=== PATIENT | female | born 1955 | race Caucasian/White ===

== ENCOUNTER 2016-10-10 21:06 | Emergency (ER) | payer OTHER, BC ==
--- NOTE | 2016-10-10 21:34 | ER Document Report ---
ED Medical Screen (RME) - General Stated Complaint: STERNUM PAIN Notes: patient is a 61 year old female who presents with complaint of rib pain. She walters holding a sheet meade and walked into a wall, a corner of the meade caught her in her chest. Admits to pain with deep breath. reproducible to palpation I have greeted and performed a rapid initial assessment of this patient. A comprehensive ED assessment and evaluation of the patient, analysis of test results and completion of the medical decision making process will be conducted by additional ED providers. Physical Exam - Vital signs Vitals: Temp Pulse Resp BP Pulse Ox 98.3 F 72 16 144/80 H 97 10/10/16 21:31 10/10/16 21:31 10/10/16 21:31 10/10/16 21:31 10/10/16 21:31 Course - Vital Signs Vital signs: Temp Pulse Resp BP Pulse Ox 98.3 F 72 16 144/80 H 97 10/10/16 21:31 10/10/16 21:31 10/10/16 21:31 10/10/16 21:31 10/10/16 21:31
[2016-10-11 01:01] LABS: ALANINE AMINOTRANSFERASE 20 U/L (9-52); ALBUMIN 4.3 g/dL (3.5-5.0); ALKALINE PHOSPHATASE 75 U/L (38-126); ANION GAP 9 (5-19); ASPARTATE AMINO TRANSFERASE 17 U/L (14-36); BILIRUBIN,TOTAL 0.5 mg/dL (0.2-1.3); BLOOD UREA NITROGEN 15 mg/dL (7-20); CALCIUM 10.1 mg/dL (8.4-10.2); CARBON DIOXIDE 28 mmol/L (22-30); CHLORIDE 105 mmol/L (98-107); CREATININE RESULT 0.69 mg/dL (0.52-1.25); GLUCOSE 100 mg/dL (75-110); POTASSIUM 3.8 mmol/L (3.6-5.0); SODIUM 142.3 mmol/L (137-145); TOTAL PROTEIN 6.5 g/dL (6.3-8.2)
--- NOTE | 2016-10-11 01:34 | ER Document Report ---
ED General - General Chief Complaint: Rib Pain Stated Complaint: STERNUM PAIN Notes: Patient is a 61-year-old female without past medical history who presents with progressively worsening epigastric and central abdominal tenderness after she struck her mid abdomen with a metal sheet tray while at work yesterday. States that the pain is gotten progressively worse that since that time and is described as a dull, constant, throbbing pain. Nothing improves or worsens the pain. She has no history of similar symptoms in the past. She has not seen her primary care doctor regarding today's concerns. She denies any associated vomiting, melena, hematochezia, diarrhea, or chest pain. No shortness of breath. TRAVEL OUTSIDE OF THE [place] IN LAST 30 DAYS: No - Related Data Allergies/Adverse Reactions: acetaminophen [From Darvocet-N] Allergy (Verified 10/10/16 21:35) codeine Allergy (Verified 10/10/16 21:35) propoxyphene [From Darvocet-N] Allergy (Verified 10/10/16 21:35) scopolamine Allergy (Verified 10/10/16 21:35) Past Medical History - General Information source: Patient - Social History Smoking Status: Current Every Day Smoker Chew tobacco use (# tins/day): No Frequency of alcohol use: Occasional Drug Abuse: None Family History: Reviewed & Not Pertinent Patient has suicidal ideation: No Patient has homicidal ideation: No Renal/ Medical History: Denies: Hx Peritoneal Dialysis Review of Systems - Review of Systems Notes: Constitutional: Negative for fever. HENT: Negative for sore throat. Eyes: Negative for visual changes. Cardiovascular: Negative for chest pain. Respiratory: Negative for shortness of breath. Gastrointestinal: Positive for abdominal pain, negative for vomiting or diarrhea. Genitourinary: Negative for dysuria. Musculoskeletal: Negative for back pain. Skin: Negative for rash. Neurological: Negative for headaches, weakness or numbness. 10 point ROS negative except as marked above and in HPI. Physical Exam - Vital signs Vitals: Temp Pulse Resp BP Pulse Ox 98.3 F 72 16 144/80 H 97 10/10/16 21:31 10/10/16 21:31 10/10/16 21:31 10/10/16 21:31 10/10/16 21:31 Interpretation: Hypertensive Notes: PHYSICAL EXAMINATION: GENERAL: Well-appearing, well-nourished and in no acute distress. HEAD: Atraumatic, normocephalic. EYES: Pupils equal round and reactive to light, extraocular movements intact, sclera anicteric, conjunctiva are normal. ENT: nares patent, oropharynx clear without exudates. Moist mucous membranes. NECK: Normal range of motion, supple without lymphadenopathy LUNGS: Breath sounds clear to auscultation bilaterally and equal. No wheezes rales or rhonchi. HEART: Regular rate and rhythm without murmurs ABDOMEN: Soft, epigastric and central abdominal tenderness on palpation, normoactive bowel sounds. No guarding, no rebound. No masses appreciated. EXTREMITIES: Normal range of motion, no pitting or edema. No cyanosis. NEUROLOGICAL: No focal neurological deficits. Moves all extremities spontaneously and on command. PSYCH: Normal mood, normal affect. SKIN: Warm, Dry, normal turgor, no rashes or lesions noted. Course - Re-evaluation Re-evalutation: 10/11/16 01:30 Patient presents with epigastric and central abdominal pain after sustaining blunt trauma to the abdomen. Primary concern would be a duodenal hematoma especially given patient's pain has progressively worsened. Alternatively, she could have abdominal wall bruising with inflammatory changes but there is not any significant bruising to the abdominal wall at time of my exam. She is otherwise well in appearance and for unclear reasons a chest x-ray was ordered in triage the patient does not have any actual pain to her ribs or sternum. Will proceed with LFTs, CT and plan for discharge if normal. 10/11/16 02:01 CT the abdomen and pelvis unremarkable. Patient with less abdominal pain at this time. Vitals remain within normal limits.At this time will discharge with return precautions and follow-up recommendations. Verbal discharge instructions given a the bedside and opportunity for questions given. Medication warnings reviewed. Patient is in agreement with this plan and has verbalized understanding of return precautions and the need for primary care follow-up in the next 24-72 hours. - Vital Signs Vital signs: Temp Pulse Resp BP Pulse Ox 98.3 F 73 16 144/80 H 97 10/10/16 21:32 10/10/16 21:32 10/10/16 21:32 10/10/16 21:32 10/10/16 21:32 - Laboratory Result Diagrams: 10/11/16 00:39 - Diagnostic Test Radiology reviewed: Reports reviewed Discharge - Discharge Clinical Impression: Abdominal trauma Qualifiers: Encounter type: initial encounter Qualified Code(s): S39.91XA - Unspecified injury of abdomen, initial encounter Condition: Good Disposition: HOME, SELF-CARE Additional Instructions: You have been seen in the Emergency Department (ED) for abdominal pain. Your CT scan today as well as her labs were normal and your pain is likely due to the blunt trauma to your abdomen. This pain should resolve in the next 7-10 days. Please follow up with your doctor as soon as possible regarding today's emergent visit and the symptoms that are bothering you. Return to the ED if your abdominal pain worsens or fails to improve, you develop bloody vomiting, bloody diarrhea, you are unable to tolerate fluids due to vomiting, fever greater than 101, or other symptoms that concern you.
[2016-10-11 08:32] VITALS: BP 121/72
== END 2016-10-11 03:12 | disposition home or self-care (01) ==
LOC: ER 21:06
DX: S39.91XA Unspecified injury of abdomen, initial encounter (principal); R07.89 Other chest pain; F17.200 Nicotine dependence, unspecified, uncomplicated; W22.8XXA Striking against or struck by other objects, initial encounter; Y99.0 Civilian activity done for income or pay; Z88.6 Allergy status to analgesic agent
CPT/HCPCS: 36415; 71111; 74177; 80053; 99284

== ENCOUNTER 2016-11-02 14:14 | Emergency (ER) | payer BC, OTHER ==
[2016-11-02] MEDS ORDERED: ASPIRIN 81 MG TABLET, CHEWABLE PO ONE (14:36)
--- NOTE | 2016-11-02 14:38 | ER Document Report ---
ED Medical Screen (RME) - General Chief Complaint: Chest Pain Stated Complaint: CHEST PAIN Notes: Patient says that she is experiencing a squeezing feeling in the front of her chest that started about 45 minutes ago when she got in her car and began to drive away from home. She's been experiencing this squeezing sensation in her chest for the past couple weeks, but all of the prior episodes stopped after a few seconds or a minute. This episode has continued ever since it started and does not seem to be easing off. She denies any shortness of breath or difficulty breathing. Has never had any heart condition. Patient does have hypothyroid and hypertension and medicines for those conditions and nothing else. No history of heart disease. Is a cigarette smoker. Does not take a baby aspirin daily. TRAVEL OUTSIDE OF THE [place] IN LAST 30 DAYS: No - Related Data Allergies/Adverse Reactions: acetaminophen [From Darvocet-N] Allergy (Verified 10/10/16 21:35) codeine Allergy (Verified 10/10/16 21:35) propoxyphene [From Darvocet-N] Allergy (Verified 10/10/16 21:35) scopolamine Allergy (Verified 10/10/16 21:35) Past Medical History - Past Medical History Cardiac Medical History: Reports: Hx Hypercholesterolemia Renal/ Medical History: Denies: Hx Peritoneal Dialysis Past Surgical History: Reports: Hx Appendectomy, Hx Hysterectomy, Hx Tonsillectomy Physical Exam - Vital signs Vitals: Temp Pulse Resp BP Pulse Ox 97.3 F 85 16 129/78 H 97 11/02/16 14:30 11/02/16 14:30 11/02/16 14:30 11/02/16 14:30 11/02/16 14:30 Course - Vital Signs Vital signs: Temp Pulse Resp BP Pulse Ox 97.3 F 85 16 129/78 H 97 11/02/16 14:30 11/02/16 14:30 11/02/16 14:30 11/02/16 14:30 11/02/16 14:30
[2016-11-02] MEDS ORDERED: NITROGLYCERIN 0.4 MG/TAB 25 TAB/BOTTLE SL PRN (14:42)
--- NOTE | 2016-11-02 14:42 | ER Document Report ---
ED Cardiac - General Time seen by provider: 14:40 Mode of Arrival: Ambulatory Information source: Patient TRAVEL OUTSIDE OF THE [place] IN LAST 30 DAYS: No - HPI Patient complains to provider of: Chest pain Associated symptoms: Other - See above <BLAYNE NICHOLAS - Last Filed: 11/02/16 18:59> <MARIO ABDULLAHI - Last Filed: 11/02/16 21:18> - General Chief Complaint: Chest Pain Stated Complaint: CHEST PAIN Notes: Patient is a 61 year old female who presents to the emergency department complaining of chest pain onset at 1330 today. Patient reports she was getting into her car when the pain began and it was unlike anything she had experienced before, patient claims it is more of a "squeezing" feeling in her upper left chest now. Patient states she has had this "squeezing" sensation intermittently for the past few weeks after an injury at work where she hit her abdomen. Patient was seen at this facility after that injury and subsequently followed up with her doctor, patient states she still "does not feel right inside". Patient denies shortness of breath and nausea. Patient currently takes Synthroid and HCTZ. Patient states she did not take any medications at home for the pain. (BLAYNE NICHOLAS) - Related Data Allergies/Adverse Reactions: acetaminophen [From Darvocet-N] Allergy (Verified 10/10/16 21:35) codeine Allergy (Verified 10/10/16 21:35) propoxyphene [From Darvocet-N] Allergy (Verified 10/10/16 21:35) scopolamine Allergy (Verified 10/10/16 21:35) Past Medical History - General Information source: Patient - Social History Smoking Status: Current Every Day Smoker Frequency of alcohol use: Social Family History: Reviewed & Not Pertinent Patient has suicidal ideation: No Patient has homicidal ideation: No - Past Medical History Cardiac Medical History: Reports: Hx Hypercholesterolemia Past Surgical History: Reports: Hx Appendectomy, Hx Hysterectomy, Hx Tonsillectomy <BLAYNE NICHOLAS - Last Filed: 11/02/16 18:59> Review of Systems - Review of Systems Constitutional: No symptoms reported EENT: No symptoms reported Cardiovascular: See HPI, Chest pain Respiratory: denies: Short of breath Gastrointestinal: denies: Nausea Genitourinary: No symptoms reported Female Genitourinary: No symptoms reported Musculoskeletal: No symptoms reported Skin: No symptoms reported Hematologic/Lymphatic: No symptoms reported Neurological/Psychological: No symptoms reported -: Yes All other systems reviewed and negative <BLAYNE NICHOLAS - Last Filed: 11/02/16 18:59> Course - Laboratory Result Diagrams: 11/02/16 14:40 11/02/16 14:40 <BLAYNE NICHOLAS - Last Filed: 11/02/16 18:59> - Laboratory Result Diagrams: 11/02/16 14:40 11/02/16 14:40 - EKG Interpretation by Me EKG shows normal: Sinus rhythm Rate: Normal Rhythm: NSR - Consults [facility] Time consulted: 15:15 <MARIO ABDULLAHI - Last Filed: 11/02/16 21:18> - Re-evaluation Re-evalutation: 11/02/16 15:09 Patient is a 61-year-old female who comes in complaining of chest pain. Patient 's initial EKG showing ST depression in her that her leads. EKG and pain are improved after nitroglycerin. Patient started on a nitroglycerin drip. Nasima Gray has been contacted regarding this patient. Pain-free at this time 11/02/16 15:21 Patient is resting comfortably. 11/02/16 16:23 Patient accepted for transfer by cardiology for unstable angina. Bed assignment will be given. 11/02/16 17:26 Patient has no complaints at this time. 11/02/16 18:29 Medically stable for transfer. Patient has been given aspirin, Lovenox, and continues to be on a nitroglycerin drip. (MARIO ABDULLAHI) - Vital Signs Vital signs: Temp Pulse Resp BP Pulse Ox 97.3 F 85 22 H 121/74 96 11/02/16 14:30 11/02/16 14:30 11/02/16 18:46 11/02/16 18:46 11/02/16 18:46 - Laboratory Laboratory results interpreted by me: 11/02/16 11/02/16 14:40 14:40 Hgb 17.0 H Hct 48.2 H MCH 33.6 H Potassium 3.3 L Calcium 10.3 H - Consults [facility] Reason for consultation: 04/10/17 1715 Called for update, transfer center reports they're looking for a bed and will call back (BLAYNE NICHOLAS) 11/02/16 15:17 transfer for eval for cardiology (MARIO ABDULLAHI) Dr. Ramachandran Reason for consultation: 11/02/[address] Ramachandran agrees to accept patient to [facility] (BLAYNE NICHOLAS) Critical Care Note - Critical Care Note Total time excluding time spent on procedures (mins): 45 - evaluation and management of chest pain with multiple re-evaluations, consultation with cardiology, coordination of transfer, counseling of patient <MARIO ABDULLAHI - Last Filed: 11/02/16 21:18> Discharge <BLAYNE NICHOLAS - Last Filed: 11/02/16 18:59> <MARIO ABDULLAHI - Last Filed: 11/02/16 21:18> - Discharge Clinical Impression: Unstable angina pectoris Condition: Stable Disposition: [facility] Referrals: VISHAL HANNA PA [Primary Care Provider] - Follow up as needed Scribe Attestation: 11/02/16 21:18 I personally performed the services described in the documentation, reviewed and edited the documentation which was dictated to the scribe in my presence, and it accurately records my words and actions. (MARIO ABDULLAHI) Scribe Documentation - Scribe Written by Riteshibe:: ericka Espinosa, 11/02/16, [id number] acting as scribe for :: Kyle <BLAYNE NICHOLAS - Last Filed: 11/02/16 18:59>
[2016-11-02] MEDS ORDERED: NITROGLYCERIN 0.4 MG/TAB 25 TAB/BOTTLE ONE (14:45)
[2016-11-02 15:00] LABS: ABSOLUTE EOSINOPHILS # (AUTO) 0.1 10^3/uL (0.0-0.6); ABSOLUTE LYMPHOCYTES (AUTO) 3.2 10^3/uL (0.5-4.7); ABSOLUTE MONOCYTES (AUTO) 0.6 10^3/uL (0.1-1.4); ABSOLUTE NEUT (AUTO) 6.4 10^3/uL (1.7-8.2); BASOPHILS % (AUTO) 0.2 % (0-2); EOSINOPHILS % (AUTO) 1.1 % (0-6); HEMATOCRIT 48.2 % (36.0-47.0); HGB HCT DIFFERENCE 2.8; LYMPHOCYTES % (AUTO) 30.8 % (13-45); MEAN CORPUSCULAR HEMOGLOBIN 33.6 pg (27.0-33.4); MEAN CORPUSCULAR HGB CONC 35.2 g/dL (32.0-36.0); MEAN CORPUSCULAR VOLUME 96 fl (80-97); MONOCYTES % (AUTO) 5.8 % (3-13); RED BLOOD COUNT 5.05 10^6/uL (3.72-5.28); RED CELL DISTRIBUTION WIDTH 12.5 % (11.5-14.0); SEGMENTED NEUTROPHILS % (AUTO) 62.1 % (42-78); WHITE BLOOD COUNT 10.3 10^3/uL (4.0-10.5)
[2016-11-02] MEDS ORDERED: NITROGLYCERIN/D5W 250 ML IV PRN (15:18)
[2016-11-02 15:23] LABS: ALANINE AMINOTRANSFERASE 26 U/L (9-52); ALBUMIN 4.8 g/dL (3.5-5.0); ALKALINE PHOSPHATASE 88 U/L (38-126); ANION GAP 16 (5-19); ASPARTATE AMINO TRANSFERASE 20 U/L (14-36); BILIRUBIN,DIRECT 0.3 mg/dL (0.0-0.4); BILIRUBIN,TOTAL 0.9 mg/dL (0.2-1.3); BLOOD UREA NITROGEN 13 mg/dL (7-20); CALCIUM 10.3 mg/dL (8.4-10.2); CARBON DIOXIDE 25 mmol/L (22-30); CHLORIDE 98 mmol/L (98-107); CREATINE KINASE 63 U/L (30-135); CREATININE RESULT 0.54 mg/dL (0.52-1.25); GLUCOSE 106 mg/dL (75-110); POTASSIUM 3.3 mmol/L (3.6-5.0); SODIUM 138.5 mmol/L (137-145); TOTAL PROTEIN 7.3 g/dL (6.3-8.2)
[2016-11-02 15:34] LABS: CREATINE KINASE MB 1.26 ng/mL (<4.55); TROPONIN I < 0.012 ng/mL
[2016-11-02] MEDS ORDERED: ENOXAPARIN SODIUM INJ 60 MG/0.6 ML DISP.SYRIN SUBCUT ONE (16:22)
[2016-11-02 16:35] LABS: PROTHROMBIN TIME 12.6 SEC (11.4-15.4)
[2016-11-02 16:36] LABS: PARTIAL THROMBOPLASTIN TIME 28.8 SEC (23.5-35.8)
[2016-11-02 18:55] VITALS: BP 121/74
--- NOTE | 2016-11-02 18:56 | EKG REPORT ---
SEVERITY:- ABNORMAL ECG - SINUS RHYTHM BIATRIAL ABNORMALITIES INCOMPLETE RIGHT BUNDLE BRANCH BLOCK CONSIDER LEFT VENTRICULAR HYPERTROPHY ST DEPRESSION, CONSIDER ISCHEMIA, ANT-LAT LDS : Confirmed by: Gutierrez Bear MD 02-Nov-2016 18:56:28
--- NOTE | 2016-11-02 18:56 | EKG REPORT ---
SEVERITY:- ABNORMAL ECG - SINUS RHYTHM PROBABLE LEFT ATRIAL ABNORMALITY NONSPECIFIC INTRAVENTRICULAR CONDUCTION DELAY MINIMAL ST DEPRESSION, ANTEROLATERAL LEADS : Confirmed by: Gutierrez Bear MD 02-Nov-2016 18:56:11
== END 2016-11-02 19:10 | disposition short-term general hospital (02) ==
LOC: ER 14:14
DX: I20.0 Unstable angina (principal); R07.9 Chest pain, unspecified; Z79.899 Other long term (current) drug therapy; F17.200 Nicotine dependence, unspecified, uncomplicated
CPT/HCPCS: 93005; 99291; 96372; 96365; 96366; 36415; 82553; 82550; 85025; 85610; 85730; 80053; 84484; 71010; 93010; J3490; J1650